=== PATIENT | male | born 1935 | race Caucasian/White ===

== ENCOUNTER 2021-07-07 09:08 | Emergency (ER) | payer MEDICARE ==
[2021-07-07 09:41] LABS: HEMOGLOBIN 13.6 gm/dl (14.0-17.5); RED BLOOD COUNT 4.36 M/UL (4.20-5.50); WHITE BLOOD COUNT 8.5 K/UL (4.5-11.0)
== END 2021-07-07 19:20 | disposition short-term general hospital (02) ==
LOC: ER1 09:08
PROVIDERS: Emergency Medicine
DX: G91.9 Hydrocephalus, unspecified (principal); Z20.822 Contact with and (suspected) exposure to COVID-19
CPT/HCPCS: 70450; 70496; 70498; 71045; 80053; 81001; 82962; 83605; 83735; 84100; 85025; 87040; 87086; 99285; Q9967; U0002

== ENCOUNTER 2021-09-02 19:01 | Observation (INO) | payer MEDICARE ==
[~2021-09-02] VITALS: Ht 185.4 cm; Wt 90.3 kg
[2021-09-02 20:08] LABS: HEMOGLOBIN 13.2 gm/dl (14.0-17.5); RED BLOOD COUNT 4.25 M/UL (4.20-5.50); WHITE BLOOD COUNT 10.7 K/UL (4.5-11.0)
[2021-09-02 20:27] LABS: BUN/CREATININE RATIO 12 (0-10)
[2021-09-03] MEDS ORDERED: AMLODIPINE BESYL5 MG PO (14:11)
[2021-09-03] MEDS ORDERED: ABILIFY5 MG PO (14:12)
[2021-09-03] MEDS ORDERED: DOXAZOSIN MESYLA4 MG PO (14:13)
[2021-09-03] MEDS ORDERED: CARBIDOPA-LEVO1 EA14 PO (14:13)
[2021-09-03] MEDS ORDERED: FINASTERIDE5 MG PO (14:14)
[2021-09-03] MEDS ORDERED: FLUOXETINE HCL10 M1 PO (14:15)
[2021-09-03] MEDS ORDERED: METOPROLOL TART50 MG PO (14:16)
[2021-09-03] MEDS ORDERED: MUPIROCIN22 GM TOP (14:16)
[2021-09-03] MEDS ORDERED: SERTRALINE HCL50 MG PO (14:17)
[2021-09-03] MEDS ORDERED: VALSARTAN320 MG PO (14:18)
[2021-09-03] MEDS ORDERED: VITAMIN D21250 MCG PO (14:18)
[2021-09-03] MEDS ORDERED: HYDRALAZINE HCL50 MG PO (14:19)
[2021-09-03] MEDS ORDERED: KLONOPIN0.5 MG PO (14:19)
[2021-09-03] MEDS ORDERED: METFORMIN HCL500 MG PO (14:20)
[2021-09-03] MEDS ORDERED: ROPINIROLE HCL0.5 MG PO (14:21)
[2021-09-03] MEDS ORDERED: TRAZODONE HCL150 MG PO (14:21)
[2021-09-04] MEDS ORDERED: CARBIDOPA-LEVO1 EA14 PO (08:33)
== END 2021-09-04 13:58 | disposition home health service (06) ==
LOC: ER1 19:01 → CDU 22:34 → MED SURG 4 22:34
PROVIDERS: Family Medicine; ADMIT Internal Medicine
DX: G93.40 Encephalopathy, unspecified (principal); G20 Parkinson's disease; R53.1 Weakness; I25.10 Atherosclerotic heart disease of native coronary artery without angina pectoris; E11.9 Type 2 diabetes mellitus without complications; I10 Essential (primary) hypertension; G47.33 Obstructive sleep apnea (adult) (pediatric); N40.0 Benign prostatic hyperplasia without lower urinary tract symptoms; Z79.84 Long term (current) use of oral hypoglycemic drugs; Z79.02 Long term (current) use of antithrombotics/antiplatelets; Z79.899 Other long term (current) drug therapy
CPT/HCPCS: 70450; 70551; 71045; 80053; 80307; 81001; 82140; 82550; 82553; 82962; 83605; 84484; 85025; 87040; 87086; 93005; 96372; 97161; 97166; 97530; 97535; 99285; G0378; G0480; J1650

== ENCOUNTER 2021-09-06 16:46 | Observation (INO) | payer MEDICARE ==
[~2021-09-06] VITALS: Ht 182.9 cm; Wt 95.3 kg
[~2021-09-06 16:46] MED LIST: ABILIFY5 MG PO; AMLODIPINE BESYL5 MG PO; CARBIDOPA-LEVO1 EA14 PO; DOXAZOSIN MESYLA4 MG PO; FINASTERIDE5 MG PO; FLUOXETINE HCL10 M1 PO; HYDRALAZINE HCL50 MG PO; KLONOPIN0.5 MG PO; METFORMIN HCL500 MG PO; METOPROLOL TART50 MG PO; MUPIROCIN22 GM TOP; ROPINIROLE HCL0.5 MG PO; SERTRALINE HCL50 MG PO; TRAZODONE HCL150 MG PO; VALSARTAN320 MG PO; VITAMIN D21250 MCG PO
[2021-09-06 18:26] LABS: HEMOGLOBIN 13.2 gm/dl (14.0-17.5); RED BLOOD COUNT 4.24 M/UL (4.20-5.50); WHITE BLOOD COUNT 11.1 K/UL (4.5-11.0)
[2021-09-06 18:52] LABS: BUN/CREATININE RATIO 16 (0-10)
[2021-09-08 06:43] LABS: HEMOGLOBIN 12.6 gm/dl (14.0-17.5); RED BLOOD COUNT 4.08 M/UL (4.20-5.50)
[2021-09-08 06:47] LABS: WHITE BLOOD COUNT 7.9 K/UL (4.5-11.0)
[2021-09-08 07:24] LABS: BUN/CREATININE RATIO 15 (0-10)
[2021-09-09 04:16] LABS: HEMOGLOBIN 12.5 gm/dl (14.0-17.5); RED BLOOD COUNT 4.08 M/UL (4.20-5.50); WHITE BLOOD COUNT 8.6 K/UL (4.5-11.0)
[2021-09-09 04:32] LABS: BUN/CREATININE RATIO 18 (0-10)
[2021-09-10 05:14] LABS: HEMOGLOBIN 13.2 gm/dl (14.0-17.5); RED BLOOD COUNT 4.25 M/UL (4.20-5.50); WHITE BLOOD COUNT 8.7 K/UL (4.5-11.0)
[2021-09-10 06:58] LABS: BUN/CREATININE RATIO 16 (0-10)
[2021-09-11 07:27] LABS: BUN/CREATININE RATIO 13 (0-10)
[2021-09-11 08:04] LABS: RED BLOOD COUNT 4.48 M/UL (4.20-5.50); WHITE BLOOD COUNT 10.2 K/UL (4.5-11.0)
[2021-09-11] MEDS ORDERED: KLONOPIN0.5 MG PO (10:54)
[2021-09-11] MEDS ORDERED: QUETIAPINE FUM100 MG PO (10:56)
--- NOTE | 2021-09-13 19:15 | NUR ---
1245 Called patient's son to inform that patient had been discharged & to have him pick patient up. He stated that Hospice Nurse had told him that he would come home by ambulance. Explained to son that patient was able to ambulate & could be transported per private car. Son stated he's too hard to get in & out of car. I'd rather he come by ambulance. [facility] called to transport. They stated they had 4 patients ahead of him & it would be a while. Report called to Hospice, spoke with Chi.
== END 2021-09-13 19:31 | disposition other institution (70) ==
LOC: ER1 16:46 → MED SURG 4 09-07 11:41 → CDU 09-07 11:41 → MED SURG 4 09-07 11:41
PROVIDERS: Family Medicine; Physician Assistant Medical; ADMIT Internal Medicine
DX: G93.49 Other encephalopathy (principal); G20 Parkinson's disease; F02.80 Dementia in other diseases classified elsewhere, unspecified severity, without behavioral disturbance, psychotic disturbance, mood disturbance, and anxiety; E83.42 Hypomagnesemia; I25.10 Atherosclerotic heart disease of native coronary artery without angina pectoris; E11.9 Type 2 diabetes mellitus without complications; I10 Essential (primary) hypertension; G47.33 Obstructive sleep apnea (adult) (pediatric); N40.0 Benign prostatic hyperplasia without lower urinary tract symptoms; G91.9 Hydrocephalus, unspecified; Z20.822 Contact with and (suspected) exposure to COVID-19; Z86.73 Personal history of transient ischemic attack (TIA), and cerebral infarction without residual deficits; Z79.84 Long term (current) use of oral hypoglycemic drugs; Z79.899 Other long term (current) drug therapy
CPT/HCPCS: 36415; 70450; 71045; 72125; 72128; 72131; 80048; 80053; 81001; 82550; 82553; 82962; 83605; 83735; 83880; 84100; 84132; 84484; 85025; 85027; 93005; 96372; 96374; 97110; 97116; 97116-GP-CQ; 97162; 97165; 97530; 97530-GP-CQ; 97535; 99285; G0378; J0360; J1650; J3486; J7030; U0002